=== PATIENT | male | born 1935 | race Caucasian/White ===

== ENCOUNTER 2021-08-14 07:45 | Day surgery (SDC) | payer MEDICARE, OTHER, SELFPAY ==
[2021-08-14 08:28] VITALS: BP 167/69; PULSE 86; RESP 16; TEMP 36.7; O2SAT 97; BMI 26.4
[2021-08-14] MEDS: Lactated Ringers 1,000 ML 100 ML IV (08:28)
--- NOTE | 2021-08-14 09:00 | IMM_PTH ---
PATIENT: DEANNA GIBSON LOC: EN U#:[id number] AGE/SX: 85/M ROOM: RE08/14/[address]: Dr. Leo Washington MD : 1935 BED: DIS: 08/14/2021 SPEC #: [id number] RECD: 08/14/21 13:48 STATUS: MARIANNE REQ #: [id number] LANE: 08/14/21 09:[address]: Leo Washington DEPT: IMMUNOHISTOCHEMISTRY RECD BY: Omayra No ENTERED: 08/14/21 13:48 SP TYPE: IMMUNO OTHR DR: Dr. Jennifer Taylor DO Tissues: A - Stomach, NOS Procedures: H Pylori (initial) PHYSICIAN & INSTITUTION [place] [address] SPECIMEN INFORMATION: Tissue Source: A ? Antrum biopsy Clinical Info: Abdomen pain, hernia Specimen Number: [id number] CPT code: 61823 METHODOLOGY: Deparaffinized sections of prefer/formalin-fixed tissue or PAP/DQ stained slides are incubated with monoclonal/polyclonal antibodies/oligonucleotide probes. Localization is made via biotin free immunoperoxidase method. Appropriate controls are performed and reacted as expected. Results on target cell population are indicated in the following table: RESULTS: ANTIBODY / CLONE RESULT Block A H Pylori (polyclonal) negative These tests were developed and their performance characteristics determined by [facility]. They may not have been cleared or approved by the U.S. Food and Drug Administration. The FDA has determined that such clearance or approval is not necessary. INTERPRETATION: A. Antrum biopsy: Negative for Helicobacter pylori organisms. AM:lázaro 08/15/2021
--- NOTE | 2021-08-14 09:00 | EGD_PTH ---
PATIENT: DEANNA GIBSON LOC: EN U#:[id number] AGE/SX: 85/M ROOM: RE08/14/[address]: Dr. Leo Washington MD : 1935 BED: DIS: 08/14/2021 SPEC #: [id number] RECD: 08/14/21 11:45 STATUS: MARIANNE JIM #: [id number] LANE: 08/14/21 09:[address]: Leo Washington DEPT: SURGICAL PATHOLOGY RECD BY: Gala Wilson ENTERED: 08/14/21 13:19 SP TYPE: EGD BIOPSY OT DR: Dr. Jennifer Taylor, Tissues: A - Gastric mucous membrane B - Stomach, NOS Procedures: Special Stain Group II Surgery Specimen Level IV Alcian Blue/PAS (control) HEADER OPERATION: EGD ([facility] [place] PRE-OP DIAGNOSIS: Abdomen pain, hernia TISSUE SUBMITTED: A ? Antrum biopsy for H. pylori and path, B ? GE junction biopsy MICROSCOPIC DIAGNOSIS A. Antrum biopsy: Mild gastritis. See microscopic description and comment. B. 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 Focal chronic inflammation. Focal changes consistent with eosinophilic esophagitis. See comment. SJ:rg 08/15/2021 COMMENT A. The results of immunohistochemistry for Helicobacter pylori will be reported separately ([id number]). B. Alcian blue/PAS stain with matched control is used in the evaluation of the specimen. Increased number of eosinophils (>20 per high power field) are noted consistent with eosinophilic esophagitis. The specimen predominantly consists of squamous mucosa. MICROSCOPIC DESCRIPTION Slides are reviewed. A. The specimen shows fragments of gastric mucosa with chronic inflammatory cell infiltrates in the lamina propria consisting of lymphocytes and plasma cells, consistent with mild chronic gastritis. GROSS DESCRIPTION A - Received in fixative is one container labeled with the patient's name and designated antrum biopsy. The specimen consists of two irregular fragments of light ashton soft tissue that in aggregate measure 0.8 x 0.3 x 0.1 cm. The specimen is totally submitted in one cassette. B - Received in fixative is one container labeled with the patient's name and designated GE junction biopsy. The specimen consists of multiple irregular fragments of light ashton soft tissue that in aggregate measure 1.5 x 0.8 x 0.1 cm. The specimen is totally submitted in one cassette. / AM:lázaro 08/14/21 TC:3 CPT: 47093 x2, 24185
--- NOTE | 2021-08-14 09:24 | PCM.HP.BLA ---
History and Physical Date of Admission: 08/14/21 Date of Service: 08/11/21 MR#:[id number]:[id number]: DEANNA GIBSONRep #:[id number] Provider:[place]/Sex: 85/M [facility] Vital Signs 08/11/21 09:24 Height 5 ft 10 in Weight: 192 lb BMI 27.5 BP 152/75 H Blood Pressure Location Rt brachial Position Sitting Respiration 18 Pulse 78 Pulse Source NIBP Temp 98.0 F Temp Source Temporal Pulse Oximetry (%) 95 Oxygen Delivery Method room air Intake Visit Reasons: Hernia Chief Complaint: recurrent [facility] [employer] Required: No Is patient in pain?: Yes Allergies No Known Allergies Allergy (Verified 08/11/21 09:25) Medications amlodipine-benazepril [Lotrel 5-20 MG Capsule] 1 capsule PO DAILY 03/12/14 [History Confirmed 08/11/21] multivitamin with folic acid [Thera] 1 tab PO DAILY 03/12/14 [History Confirmed 08/11/21] saw palmetto 450 mg PO BID 03/12/14 [History Confirmed 08/11/21] vitamin E (dl, acetate) 400 units PO DAILY 03/12/14 [History Confirmed 08/11/21] allopurinol 300 mg tablet ea PO 08/11/21 [History Confirmed 08/11/21] apixaban 5 mg tablet 5 mg PO ONCE tab 08/11/21 [History Confirmed 08/11/21] furosemide 80 mg tablet 40 mg PO DAILY tab 08/11/21 [History Confirmed 08/11/21] potassium chloride 20 mEq tablet,extended release(part/cryst) ea PO 08/11/21 [History Confirmed 08/11/21] sour black extract 1,000 mg capsule mg PO 08/11/21 [History Confirmed 08/11/21] tamsulosin 0.4 mg capsule ea PO 08/11/21 [History Confirmed 08/11/21] [facility] History (Updated 08/11/21 @ 11:[address] Leo Washington MD) Back pain BPH (benign prostatic hyperplasia) Carotid stenosis, bilateral GERD (gastroesophageal reflux disease) History of DVT (deep vein thrombosis) HTN (hypertension) Osteoarthritis Surgical History (Updated 08/11/21 @ 09:33 by Vicki Webster) History of basal cell carcinoma excision (~2009) History of colonoscopy History of left inguinal hernia repair (~1999) History of left-sided carotid endarterectomy History of right inguinal hernia repair (~1963) History of transurethral resection of prostate Family History (Updated 08/11/21 @ 09:34 by Vicki Webster) Mother PAOD (peripheral arterial occlusive disease) Social History (Updated 08/11/21 @ 09:34 by Vicki Webster) Smoking Status: Former smoker HPI HPI HPI: DEANNA GIBSON, is a 85 M who presents to the office today for a right inguinal bulge concerning for possible right inguinal hernia recurrence after a prior hernia repair in 1963. This finding was first noticed by patient approximately 5 years ago, but has become increasingly symptomatic with discomfort/pain. Patient is not able to recall how this occurred. Mr. Gibson denies any complaints that would suggest obstipation or unexplained vomiting, but does remark of a bulge: It never goes back in. Patient actually has a history of bilateral inguinal hernias; with the left side repaired in 1999. Left side has given him no troubles. Patient states that even more than his inguinal hernia, he has diffuse epigastric pains and bloating that keep him uncomfortable most of the time. His confirms that this complaint which she is remarked of for at least 1 year has resulted in him eating much less of the meals that she prepares and leads him to sleep in a recliner most nights. He states that stretched out on the bed his pain is more aggravated. There is occasional nausea and occasional reflux associated with these symptoms. Mealtimes occurred approximately 6 to 7:00 PM and the patient does not retire to bed/the recliner until 11 PM. He confirms that he is eating very minimally spicy foods if at all. In addition to affecting Mr. Gibson sleep, this is limited his activity as well and may explain why he has not experienced any weight loss with this issue. This issue has been brought to the patient's primary care physician, who recommended CT of the abdomen pelvis. According to Mr. Gibson, this showed a possible lesion within the patient's bladder, but follow-up cystoscopy with urology revealed this was simply extrinsic compression of the bladder wall from the patient's recurrent right inguinal hernia. Mr. Gibson has a history of constipation, but this symptom has been dramatically improved by the regular use of Metamucil. He states his bowels are currently moving 1-2 times daily. He denies noting any blood with them. His last colonoscopy occurred approximately 8 years ago just after he turned 77. He unfortunately is unable to recall any of the findings of the scope or if there was follow-up recommended. He does comment that his prior scope was notable for some polyps that were removed. Patient has no personal history of smoking. Has no personal history of recurrent cutaneous infections including staph. However, he and his are sure to relay a difficult time with sedation following removal of a basal cell carcinoma. The patient is currently anticoagulated with Eliquis because of a history of DVT first diagnosed approximately 1 year ago. ROS General General: Yes fatigue; No weight change, appetite, colon cancer, breast cancer or weakness HEENT HEENT: No difficulty swallowing, eye injury, eye surgery, swollen glands or hoarseness Endo Endocrine: No thyroid disease, diabetes mellitus, thyroid cancer, Hair loss, heat intolerance or cold intolerance Musc Musculoskeletal: Yes back problems, arthritis and gout; No rheumatoid arthritis or joint pain Cardio Cardiovascular: Yes high blood pressure; No murmur, pacemaker, heart disease, atrial fibrillation, heart attack, heart stent, palpitations, shortness of breat with exertion or chest pain Psych Psychiatric: No depression, anxiety or hearing voices Resp Respiratory: No shortness of breath, No sleep apnea, No cough, No COPD, No asthma, No emphysema and No wheezing Gastro Gastrointestinal: Yes abdominal pain, Yes nausea or vomiting, No diarrhea, No constipation, No blood in stool, Yes acid reflux, No hemorrhoids, No ulcers, No gallbladder problem and No black,tarry stools Javier Hematologic: No blood thinners, No blood disorders, No bleeding, No anemia and No blood clots Neuro Neurologic: No weakness Exam Const General: cooperative and no acute distress Nutritional Appearance: average body habitus Orientation: alert and oriented x3 Resp Effort & Inspection: normal respiratory effort Auscultation: no rales, no rhonchi and no wheezes Cardio Rate: regular rate Rhythm: regular rhythm Heart Sounds: S1 normal and S2 normal GI Inspection: distended (Moderate) and visible herniation (Umbilical) Palpation: hernia (tender umbilical and right inguinal hernias- chr fat incarceration) and tender in the epigastrum, in the LUQ and in the RUQ Penis: phimosis Scrotum: inguinal hernia on the right (Unable to delineate size of defect or direct versus indirect given patient's intolerance of exam) Assessment and Plan Assessment and Plan (1) Hernia: (2) Abdominal pain: Status: Acute Qualifiers: Abdominal location: upper abdomen, unspecified Qualified Code(s): R10.10 - Upper abdominal pain, unspecified Comment: Patient with 1 year history of abdominal pain and bloating that has been occasionally associated with nausea and reflux. Patient states that his activity is limited by this discomfort and he is not able to sleep and his own bed most nights because of it. He has tried wnia-bfa-hxnxyun medications such as Rolaids with some relief. He states this symptom is more distressing than that which she feels with his hernia. Plan - Dr. Leo Washington MD: ?Plan for outpatient EGD to assess for possible cause of patient's symptoms. Patient instructed that he will need to hold Eliquis for 48 hours prior to the scope and present with a tractor trailer truck driver the day of the procedure. (3) Umbilical hernia: Status: Acute Qualifiers: Obstruction and gangrene presence: without obstruction or gangrene Qualified Code(s): K42.9 - Umbilical hernia without obstruction or gangrene Comment: Patient unaware of this hernia until exam today. On exam I estimate the size of the defect to be approximately 2 cm but patient is quite uncomfortable with palpation so this exam is limited. Palpation seems to reveal chronically incarcerated omentum within the defect. Plan - Dr. Leo Washington MD: ?Continue clinical observation for now. Depending on the course of patient's treatment, this could be repaired as part of an inguinal hernia repair down the road. 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 Initial repair was done in 1963 via an anterior approach. Unknown whether mesh was used. This hernia has been present for at least 5 years but is becoming increasingly symptomatic. There are no parts of the patient's history that are concerning for possible incarceration or strangulation. Given that this was an anterior repair initially, I believe the patient would benefit most from a transperitoneal posterior repair with mesh. However, given that this is only a secondary complaint to his primary upper abdominal pain complaints I would like to sort out those first if possible. In the interim I would like to obtain the CT imaging of the abdomen and pelvis which he states was done in [facility] approximately 1 year ago. Additionally I would like to obtain his anesthetic records for the recent excision of the basal cell carcinoma. Lastly I would like to obtain the colonoscopy results that were again done and over approximately 8 years ago. If the CT results cannot be located we will have to repeat that imaging here for preoperative planning. I have also informed the patient that I am currently not able to offer him the posterior repair but seeking necessary certification/credentialing hopefully within the next 3 months. He states he is happy to wait this time and use the interim time to find an answer to his other abdominal pain complaints. Plan - Dr. Leo Washington MD: ?Seek records as detailed in assessment above. 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 There are no clinical changes since date of exam. We will proceed with EGD under MAC.
[2021-08-14 09:51] VITALS: BP 111/66; BP 167/69; PULSE 71; RESP 16; TEMP 36.1; O2SAT 93
[2021-08-14 09:55] VITALS: BP 117/66; BP 167/69; PULSE 78; RESP 16; O2SAT 92
[2021-08-14 10:00] VITALS: BP 130/77; BP 167/69; PULSE 68; RESP 16; O2SAT 94
[2021-08-14 10:05] VITALS: BP 128/74; BP 167/69; PULSE 68; RESP 16; TEMP 36.3; O2SAT 95
--- NOTE | 2021-08-14 10:07 | OP.EGD_ITS ---
Patient Name: John Meraz Procedure Date: 08/14/2021 9:23 AM Date of : 1935 Age: 85 Procedure: Upper GI endoscopy Indications: Epigastric abdominal pain, Dyspepsia Providers: Leo Washington MD Medicines: Monitored Anesthesia Care Patient Profile: Patient has symptoms of acute abdominal distention and acute epigastric abdominal pain. Complications: No immediate complications. Estimated blood loss: Minimal. Procedure: Pre-Anesthesia Assessment: - Prior to the procedure, a History and Physical was performed, and patient medications and allergies were reviewed. The patient's tolerance of previous anesthesia was also reviewed. The risks and benefits of the procedure and the sedation options and risks were discussed with the patient. All questions were answered, and informed consent was obtained. Prior Anticoagulants: The patient last took Eliquis (apixaban) 2 days prior to the procedure. After reviewing the risks and benefits, the patient was deemed in satisfactory condition to undergo the procedure. After obtaining informed consent, the endoscope was passed under direct vision. Throughout the procedure, the patient's blood pressure, pulse, and oxygen saturations were monitored continuously. The gastroscope was introduced through the mouth, and advanced to the second part of duodenum. The upper GI endoscopy was accomplished without difficulty. The patient tolerated the procedure well. Scope In: 9:33:30 AM Scope Out: 9:46:48 AM Total Procedure Duration Time 0 hours 13 minutes 18 seconds Findings: The second portion of the duodenum was normal. Scattered mild inflammation characterized by erythema was found in the stomach. Biopsies were taken with a cold forceps for Helicobacter pylori testing. Estimated blood loss was minimal. A medium-sized hiatal hernia was present. A non-obstructing Schatzki ring was found in the lower third of the esophagus. Biopsies were taken with a cold forceps for histology. Estimated blood loss was minimal. Impression: - Normal second portion of the duodenum. - Gastritis. Biopsied. - Medium-sized hiatal hernia. - Non-obstructing Schatzki ring. Biopsied. Recommendation: - Resume regular diet today. - Resume Eliquis (apixaban) at prior dose in 2 days. - Await pathology results. Procedure Code(s): --- Professional --- 66444, Esophagogastroduodenoscopy, flexible, transoral; with biopsy, single or multiple Diagnosis Code(s): --- Professional --- K29.70, Gastritis, unspecified, without bleeding K44.9, Diaphragmatic hernia without obstruction or gangrene K22.2, Esophageal obstruction R10.13, Epigastric pain CPT copyright 2017 [employer]. All rights reserved. The codes documented in this report are preliminary and upon medical assistant internal medicine review may be revised to meet current compliance requirements. Leo Washington MD 08/14/2021 10:06:43 AM This report has been signed electronically. Number of Addenda: 0 Note Initiated On: 08/14/2021 9:23 AM
--- NOTE | 2021-08-14 10:07 | OP.CCLET_ITS ---
08/14/2021 Jennifer Taylor Re : Upper GI endoscopy procedure for John Meraz Dear Claudia This procedure was performed on July. My impressions and recommendations are as follows: Impressions : - Normal second portion of the duodenum. - Gastritis. Biopsied. - Medium-sized hiatal hernia. - Non-obstructing Schatzki ring. Biopsied. Recommendations : - Resume regular diet today. - Resume Eliquis (apixaban) at prior dose in 2 days. - Await pathology results. My findings are described in the full procedure note, which is enclosed. If I can be of further assistance, please feel free to contact me at Doctor phone number(s): , Work: . Sincerely, Leo Washington MD 08/14/2021 10:06:43 AM This report has been signed electronically.
[2021-08-14 10:25] VITALS: BP 167/69
== END 2021-08-14 10:49 ==
LOC: EN 07:49 → AC 07:51
PROVIDERS: PCP Family Medicine; Referring Provider Family Medicine; Visit Provider Surgery
PROC: 0DJ08ZZ Inspection of Upper Intestinal Tract, Via Natural or Artificial Opening Endoscopic (ICD-10-PCS; CPT 43235; principal; 2021-08-14 08:55)
DX: K29.70 Gastritis, unspecified, without bleeding (principal); K44.9 Diaphragmatic hernia without obstruction or gangrene; K22.2 Esophageal obstruction; I10 Essential (primary) hypertension; K21.9 Gastro-esophageal reflux disease without esophagitis; Z87.891 Personal history of nicotine dependence; K42.9 Umbilical hernia without obstruction or gangrene; K40.91 Unilateral inguinal hernia, without obstruction or gangrene, recurrent; Z79.01 Long term (current) use of anticoagulants; Z86.718 Personal history of other venous thrombosis and embolism; Z85.828 Personal history of other malignant neoplasm of skin
CPT/HCPCS: 43239; 88305; 88313; 88342; J7120; J2405

== ENCOUNTER → 2022-05-01 | Outpatient (CLI) | payer MEDICARE, OTHER, SELFPAY ==
--- NOTE | 2022-05-01 10:25 | EKG12_ITS ---
Test Reason : PREOP Blood Pressure : / mmHG Vent. Rate : 070 BPM Atrial Rate : 070 BPM P-R Int : 166 ms QRS Dur : 090 ms QT Int : 396 ms P-R-T Axes : 039 025 054 degrees QTc Int : 427 ms Normal sinus rhythm Normal ECG Confirmed by DEE TELLEZ, OSMAN ([id number]), electronic news gathering editor ANATOLY MCNEAL ([id number]) on 05/01/2022 1:52:01 PM Referred By: Leo Washington Confirmed By:DEVI PRICE MD
[2022-05-01 11:48] LABS: Hematocrit 43.4 % (40-54); Hemoglobin 14.3 g/dL (13.0-16.5); Mean Corp Hgb Conc 32.9 g/dL (32-36); Mean Corpuscular Hgb 31.4 pg (27.0-32.0); Mean Corpuscular Volume 95.4 fL (80-94); Mean Platelet Vol. 11.9 fl (6.2-12.0); Platelet Count 144 K/mm3 (150-450); RBC Distribution Width CV 13.2 % (11.6-14.6); RBC Distribution Width SD 45.7 fl (35.1-43.9); Red Blood Count 4.55 M/mm3 (4.6-6.2); White Blood Count 6.8 K/mm3 (4.4-11.0)
[2022-05-01 12:14] LABS: Anion Gap 4 (5-15); BUN 17 mg/dL (7-18); BUN/Creat Ratio 13.7 RATIO (10-20); Calcium,Total 9.4 mg/dL (8.5-10.1); Chloride 110 mmol/L (98-107); Creatinine, Serum 1.24 mg/dL (0.70-1.30); EST Glomerular Filtration Rate 59 mL/min (>60); Est Glom Filt Rate - Afr Amer 71 mL/min (>60); Glucose 91 mg/dL (74-106); Sodium Level 140 mmol/L (136-145)
[2022-05-08 09:54] VITALS: BP 168/73; PULSE 73; RESP 16; TEMP 36.6; O2SAT 97; BMI 27.1
[2022-05-08] MEDS: Lactated Ringers 1,000 ML 15 ML IV (10:07)
--- NOTE | 2022-05-08 13:13 | SUR.PREOP ---
1100- PT UPDATED REGARDING SURGERY TIME DELAY. PT UNDERSTANDS AND IS NOT WILLING TO STAY. DR FLEMING AND DR CHUNG AWARE.
--- NOTE | 2022-05-08 13:15 | SUR.PREOP ---
1110- PT UP TO BATHROOM AND IV TAKEN OUT.
== END | disposition home or self-care (01) ==
LOC: SDC 05-08 09:13 → AC 05-08 12:19 → PAT 06-09 14:20
PROVIDERS: Anesthesiology; PCP Family Medicine; Referring Provider Surgery; Visit Provider Surgery
DX: Z01.818 Encounter for other preprocedural examination (principal); Z01.810 Encounter for preprocedural cardiovascular examination
CPT/HCPCS: 36415; 80048; 85027; 93005; J7120; J2405

== ENCOUNTER → 2025-11-09 | Outpatient (CLI) | payer MEDICARE, OTHER, SELFPAY ==
--- NOTE | 2025-11-09 14:34 | RAD_ITS ---
PROCEDURE: ABDOMEN SINGLE VIEW 11/09/2025 REASON FOR EXAM: CONSTIPATION TECHNIQUE: Procedure Code: RADABD Modality: DX Procedure: ABDOMEN SINGLE VIEW COMPARISON: None FINDINGS: There is a nonobstructive bowel gas pattern. There is no significant stool burden. There is a radiopaque foreign body to the right of the spine at the T12 level, consistent with an ingested pill. 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 A loop recorder is noted. There is linear scarring or atelectasis in the right lung base. RAD/Abdomen Single View IMPRESSION: No significant abnormality. Reading Location: [place] [address]
== END | disposition home or self-care (01) ==
LOC: RAD 14:15
PROVIDERS: PCP Internal Medicine; Referring Provider Student in an Organized Health Care Education/Training Program; Visit Provider Student in an Organized Health Care Education/Training Program
DX: K59.00 Constipation, unspecified (principal)
CPT/HCPCS: 74018